=== PATIENT | male | born 2000 | race Two or more races ===

== ENCOUNTER 2022-03-17 23:37 | Emergency (ER) | payer OTHER ==
[~2022-03-17] VITALS: Ht 167.6 cm; Wt 88.9 kg
[~2022-03-17 23:37] MED LIST: CIPRO500 MG PO; INTESTINEX1 CAP PO
[2022-03-18] MEDS ORDERED: KETO10TA2 PO (03:39)
[2022-03-18] MEDS ORDERED: ACETAMINOPHEN650 M2 (05:18)
== END 2022-03-18 03:55 | disposition home or self-care (01) ==
LOC: ER 23:37
DX: M25.562 Pain in left knee (principal); Z91.013 Allergy to seafood

== ENCOUNTER 2022-11-17 12:46 | Emergency (ER) | payer OTHER ==
[~2022-11-17] VITALS: Ht 167.6 cm; Wt 88.9 kg
[~2022-11-17 12:46] MED LIST changes: +ACETAMINOPHEN650 M2; +KETO10TA2 PO
== END 2022-11-17 16:09 | disposition home or self-care (01) ==
LOC: ER 12:46
DX: R07.1 Chest pain on breathing (principal)